=== PATIENT | male | born 1965 | race Caucasian/White ===

== ENCOUNTER → 2020-04-29 | Emergency (ER) | payer SELFPAY | END | disposition left against medical advice (07) | LOC: ER 11:16 | DX: M25.519 Pain in unspecified shoulder (principal); Z53.21 Procedure and treatment not carried out due to patient leaving prior to being seen by health care provider ==

== ENCOUNTER 2020-05-05 11:59 | Emergency (ER) | payer SELFPAY ==
[~2020-05-05] VITALS: Ht 170.2 cm; Wt 72.0 kg
[2020-05-05 12:44] VITALS: BP 149/90
[2020-05-05] MEDS ORDERED: predniSONE 10 MG TABLET PO ONE (13:15)
[2020-05-05] MEDS ORDERED: PRED20TA PO (13:33)
[2020-05-05] MEDS ORDERED: NAPR-514 PO (13:33)
--- NOTE | 2020-05-05 13:34 | PHYS DOC ---
Past Medical History Past Medical History: Anxiety, Dementia Additional Past Medical Histor: DDD, neuropathy Past Surgical History: Other Additional Past Surgical Histo: Back and neck surgery at Smoking Status: Current Every Day Smoker Alcohol Use: None General Adult EDM: Chief Complaint: UPPER EXTREMITY PAIN HPI: HPI: Patient is a 54 year old male who presents emergency department with complaints of pain in his left shoulder that radiates through to his shoulder blade and down his left arm with movement. He denies any new injury, he reports a history of a previous cervical spinal fusion. He states that the pain started 1 week ago and increases with movement. Patient states that his left second and third fingers feel numb and tingly. He reports at times the pain is been so severe it is caused him to feel nauseated and did break out in a sweat. He denies any chest pain, palpitations, shortness of breath, cough, dizziness, abdominal pain, vomiting, diarrhea, or headache. Patient states that the pain increases if he lies down or moves his left shoulder. He describes the pain as a sharp, shooting, stabbing pain that is a constant 7 out of 10 but increases to a 9 out of 10 with movement. The pain radiates down his left arm. Patient reports he is tried taking ibuprofen, Advil, and Excedrin with little relief of his symptoms. Review of Systems: Review of Systems: Constitutional: Denies fever or chills. [] Eyes: Denies change in visual acuity. [] HENT: Denies nasal congestion or sore throat. [] Respiratory: Denies cough or shortness of breath. [] Cardiovascular: Denies chest pain, palpitations, or edema. [] GI: Denies abdominal pain, vomiting, or diarrhea. [] Musculoskeletal: Denies back pain; see HPI Integument: Denies rash. [] Neurologic: Denies headache, see HPI Psychiatric: Denies depression or anxiety. [] Heart Score: Risk Factors: Risk Factors: DM, Current or recent (<one month) smoker, HTN, HLP, family history of CAD, obesity. Risk Scores: Score 0 - 3: 2.5% MACE over next 6 weeks - Discharge Home Score 4 - 6: 20.3% MACE over next 6 weeks - Admit for Clinical Observation Score 7 - 10: 72.7% MACE over next 6 weeks - Early Invasive Strategies Current Medications: Current Medications Medications (Trade) Dose Ordered Sig/Danita Start Time Stop Time Status Last Admin Dose Admin Ketorolac Tromethamine (Toradol Im) 30 mg 1X ONCE 05/05/20 13:15 05/05/20 13:16 UNV Prednisone (Prednisone) 50 mg 1X ONCE 05/05/20 13:15 05/05/20 13:16 UNV Physical Exam: PE: Constitutional: Well developed, well nourished, no acute distress, non-toxic appearance. [] HENT: Normocephalic, atraumatic, bilateral external ears normal, oropharynx moist, no oral exudates, nose normal. [] Eyes: PERRLA, EOMI, conjunctiva normal, no discharge. [] Neck: Normal range of motion, no bony tenderness, supple, no stridor; left paracervical tenderness to palpation, positive Spurling's testing to the left [] Cardiovascular:Heart rate regular rhythm, no murmur [] Lungs & Thorax: Bilateral breath sounds coarse with scattered wheezes throughout, regular rate, no increased work of breathing Skin: Warm, dry, no erythema, no rash. [] Back: No tenderness Extremities: Left shoulder: No bony tenderness, no cyanosis, no clubbing, ROM limited due to pain, no edema Neurologic: Alert and oriented X 3, normal sensory function, left bike technician 4/5, right bike technician 5/5 Psychologic: Affect normal, judgement normal, mood normal. [] Current Patient Data: Vital Signs: Vital Signs Date Time Temp Pulse Resp B/P (MAP) Pulse Ox O2 Delivery O2 Flow Rate FiO2 05/05/20 12:44 97.8 77 16 149/90 (109) 98 Room Air 97.8 EKG: EK-sinus rhythm, rate 79, no STEMI read by Dr. Gomez [] Radiology/Procedures: Radiology/Procedures: [] Course & Med Decision Making: Course & Med Decision Making Pertinent Labs and Imaging studies reviewed. (See chart for details) [] Dragon Disclaimer: Dragon Disclaimer: This electronic medical record was generated, in whole or in part, using a voice recognition dictation system. Departure Departure Impression: Primary Impression: Cervical radiculopathy Disposition: 01 HOME, SELF-CARE Condition: STABLE Referrals: ALEX ALFREDO (PCP) Patient Instructions: Cervical Radiculopathy, [id number] Additional Instructions: Fill the prescriptions and use as directed. Follow up with a primary care doctor using the list provided, return to the ER if symptoms worsen. Scripts Naproxen (NAPROXEN) 500 Mg Tablet 1 TAB PO BID PRN for PAIN for 10 Days, #20 TAB 0 Refills Prov: PATRICIA LESLIE APRN 05/05/20 Prednisone (PREDNISONE) 20 Mg Tablet 1 TAB PO UD for 12 Days, #15 TAB 2 tabs by mouth days 1,2,3 then 1.5 tabs by mouth days 4,5,6 then 1 tab by mouth days 7,8,9 then 0.5 tab by mouth day 10,11,12 Prov: PATRICIA LESLIE APRN 05/05/20 Justicifation of Admission Dx: Justifications for Admission: Justification of Admission Dx: N/A PATRICIA LESLIE APRN May 05, 2020 13:34
[2020-05-05] MEDS ORDERED: KETOROLAC 30 MG/ML VIAL. IM ONE (13:45)
--- NOTE | 2020-05-06 06:15 | EKG ---
[facility] [address] [place] [address] Test Date: 2020-05-05 Test Time: 12:12:26 Pat Name: MEREDITH CONTRERAS Department: Room: Gender: Sap Basis Architect: : [id number] Requested By: PATRICIA LESLIE Order Number: [id number] Reading MD: Measurements Intervals [place] Rate: 79 P: 60 GA: 160 QRS: 66 QRSD: 82 T: 69 QT: 350 QTc: 407 Interpretive Statements SINUS RHYTHM QRS(T) CONTOUR ABNORMALITY CONSIDER ANTEROSEPTAL MYOCARDIAL DAMAGE POSSIBLY ABNORMAL ECG RI6.01 No previous ECG available for comparison
== END 2020-05-05 13:56 | disposition home or self-care (01) ==
LOC: ER 11:59
DX: M54.12 Radiculopathy, cervical region (principal); M25.512 Pain in left shoulder; R11.0 Nausea; F41.9 Anxiety disorder, unspecified; G62.9 Polyneuropathy, unspecified; F03.90 Unspecified dementia, unspecified severity, without behavioral disturbance, psychotic disturbance, mood disturbance, and anxiety; F17.200 Nicotine dependence, unspecified, uncomplicated; Z98.890 Other specified postprocedural states
CPT/HCPCS: 93005; 96372; 99283; J1885; J7512